=== PATIENT | female | born 1945 | race Two or more races ===

== ENCOUNTER 2017-06-03 16:30 | Emergency (ER) | payer MEDICARE, MEDICAID ==
[~2017-06-03] VITALS: Ht 157.5 cm; Wt 59.0 kg
[2017-06-03 16:30] VITALS: BP 164/82
[2017-06-03] MEDS ORDERED: HYDROcodone-ACET 5/325MG TAB PO ONE (17:00)
[2017-06-03] MEDS ORDERED: KETOROLAC TROMETH 60MG/2ML VIAL IM ONE (17:00)
[2017-06-03] MEDS ORDERED: KETOROLAC TROMETH 30 MG/ML 1ML VIAL IM ONE (17:00)
[2017-06-03] MEDS ORDERED: MORPHINE SULFATE 10 MG/ML INJ 1ML SDV IM ONE (18:15)
[2017-06-03] MEDS ORDERED: PROMETHAZINE HCL 25 MG/ML 1ML IM ONE (18:15)
== END 2017-06-03 18:39 | disposition home or self-care (01) ==
LOC: ER 16:30
DX: S39.012A Strain of muscle, fascia and tendon of lower back, initial encounter (principal); E11.9 Type 2 diabetes mellitus without complications; I10 Essential (primary) hypertension; V43.62XA Car passenger injured in collision with other type car in traffic accident, initial encounter; Y93.89 Activity, other specified; Y99.8 Other external cause status; Y92.488 Other paved roadways as the place of occurrence of the external cause
CPT/HCPCS: 72070; 72100; 96372; 99284; J1885; J2270; J2550

== ENCOUNTER 2017-08-13 23:26 | Emergency (ER) | payer MEDICARE, MEDICAID ==
[~2017-08-13] VITALS: Ht 162.6 cm; Wt 68.0 kg
[2017-08-13 23:36] VITALS: BP 140/100
== END 2017-08-14 01:07 | disposition left against medical advice (07) ==
LOC: ER 23:26
DX: R11.2 Nausea with vomiting, unspecified (principal); Z53.21 Procedure and treatment not carried out due to patient leaving prior to being seen by health care provider
CPT/HCPCS: 82962